=== PATIENT | female | born 1940 | race Caucasian/White ===

== ENCOUNTER 2017-04-22 12:18 | Inpatient (IN) | payer MEDICARE, MEDICAID ==
[~2017-04-22] VITALS: Ht 165.1 cm; Wt 93.8 kg
--- NOTE | 2017-04-22 12:48 | ERA ---
ER Documentation Chief Complaint Date/Time DATE: 04/22/17 TIME: 12:45 Chief Complaint FELL WEEKS AGO, HAS TOAL BODY ACHES NOW HPI 77-year-old female history of hypertension, hyperlipidemia and chronic back pain referred to the ED by Dr. Casey for evaluation of acute on chronic back pain. Patient with a 4 year history of chronic low back pain which has become increasingly severe over the last week. Pain is sharp and burning and radiates down the back of both legs but is especially severe in a stocking distribution of both lower legs and feet. Pain is exacerbated by any kind of movement but no relieving factors including multiple analgesics and opiates including oxycodone. She has been to multiple EDs previously and had extensive workup including CT and MRI the results of which are not known but according to family nothing acute was found. Denies abdominal pain, nausea, vomiting, diarrhea or constipation. No chest pain or palpitations. No shortness of breath or cough. Denies headache, visual changes, focal weakness or numbness. No dysuria, polyuria or hematuria. No fevers or chills. ROS All systems reviewed and are negative except as per history of present illness. Medications Home Meds Active Scripts Gabapentin* (Gabapentin*) 300 Mg Capsule, 300 MG PO TID, #15 CAP Prov:CRISSY EARL MD 04/22/17 Reported Medications Potassium Chloride* (Potassium Chloride*) 8 Meq Capsule.er, 8 MEQ PO DAILY, CAP 04/22/17 Hydralazine Hcl* (Hydralazine Hcl*) 25 Mg Tab, 25 MG PO Q8, #90 TAB 04/22/17 Kcnzke-Nuqtqbfz-Ceogqsx* (Zenpep * 20,000) 20,000 L-68,000-109,000 Unit Capsule.dr, 1 CAP PO WITH MEALS, CAP 04/22/17 Linaclotide (LINZESS) 145 Mcg Capsule, 145 MCG PO DAILY, #30 CAP 04/22/17 Nebivolol Hcl* (Bystolic*) 10 Mg Tablet, 10 MG PO DAILY, #30 TAB 04/22/17 Fenofibrate Nanocrystallized* (Fenofibrate*) 145 Mg Tablet, 145 MG PO DAILY, TAB 04/22/17 Pregabalin* (Lyrica*) 100 Mg Capsule, 100 MG PO DAILY, CAP 04/22/17 Oxycodone HCl/Acetaminophen (Percocet 7.5-325 mg Tablet) 1 Each Tablet, 1 EACH PO BID, TAB 04/22/17 Hydrocodone/Acetaminophen (Solomon 7.5-325 Tablet) 1 Each Tablet, 1 EACH PO TID, TAB 04/22/17 Esomeprazole Mag Trihydrate (Nexium) 40 Mg Capsule.dr, 40 MG PO DAILY, #30 CAP 04/22/17 Levetiracetam* (Levetiracetam*) 500 Mg Tablet, 500 MG PO BID, TAB 04/22/17 Atorvastatin Calcium* (Atorvastatin Calcium*) 20 Mg Tablet, 20 MG PO QHS, #30 TAB 04/22/17 Amlodipine Besylate* (Amlodipine Besylate*) 10 Mg Tablet, 10 MG PO DAILY, #30 TAB 04/22/17 Ibuprofen* (Ibuprofen*) 600 Mg Tablet, 600 MG PO BID, TAB 04/22/17 Furosemide* (Furosemide*) 40 Mg Tablet, 40 MG PO DAILY, TAB 04/22/17 Spironolactone* (Aldactone*) 5 Mg/Ml (COMPOUNDED) Susp, 5 MG PO BID for 30 Days , BOTTLE (COMPOUNDED) 04/22/17 Lorazepam* (Lorazepam*) 0.5 Mg Tablet, 0.5 MG PO HS Y for ANXIETY, TAB 04/22/17 Discontinued Reported Medications Hydrocodone/Acetaminophen (Solomon 5-325 Tablet) 1 Each Tablet, 1 EACH PO TID, TAB 04/22/17 Allergies Allergies: Coded Allergies: No Known Allergy (Unverified , 04/22/17) PMhx/Soc Reviewed in chart. As per HPI. Lives with family. History of Surgery: No Anesthesia Reaction: No Hx Neurological Disorder: No Hx Respiratory Disorders: No Hx Cardiac Disorders: Yes Hx Psychiatric Problems: No Hx Miscellaneous Medical Probl: No Hx Alcohol Use: No Hx Substance Use: No Hx Tobacco Use: No FmHx No stroke or cancer. Physical Exam Vitals Vital Signs Date Time Temp Pulse Resp B/P Pulse Ox O2 Delivery O2 Flow Rate FiO2 04/22/17 15:39 52 13 126/84 97 04/22/17 14:07 59 17 130/79 97 Room Air 04/22/17 12:23 98.1 84 20 176/83 99 Physical Exam Const: Alert, moderate to severe distress due to pain. Head: Atraumatic Eyes: Normal Conjunctiva ENT: Normal External Ears, Nose and Mouth. Neck: Full range of motion. No meningismus. Nontender. Resp: Clear to auscultation bilaterally Cardio: Regular rate and rhythm, no murmurs Abd: Soft, obese non tender, non distended. Normal bowel sounds Skin: No petechiae or rashes Back: No midline or flank tenderness. Diffuse, nonlocalizing lumbar tenderness but no paraspinal muscle spasm. No midline bony tenderness, step- off or deformity. Dorsiflexion of the great toes normal bilaterally. Unable to cooperate with leg raising. Ext: No cyanosis, or edema. No calf swelling or tenderness. Pulses are 4+ in all extremities. Neur: Awake and alert. No focal deficit observed. Motor and sensory equal bilaterally. Psych: Patient appears anxious and depressed. Result Diagram: 04/22/17 1335 04/22/17 1335 Results 24 hrs Laboratory Tests Test 04/22/17 12:57 04/22/17 13:35 Urine Color YELLOW Urine Clarity CLEAR Urine pH 5.0 Urine Specific [place] 1.023 Urine Ketones NEGATIVEmg/dL Urine Nitrite NEGATIVEmg/dL Urine Bilirubin NEGATIVEmg/dL Urine Urobilinogen NEGATIVEmg/dL Urine Leukocyte Esterase NEGATIVELeu/ul Urine Microscopic RBC 3/HPF Urine Microscopic WBC 0/HPF Urine Hemoglobin 1+mg/dL Urine Glucose NEGATIVEmg/dL Urine Total Protein NEGATIVEmg/dl White Blood Count 6.710^3/ul Red Blood Count 3.5410^6/ul Hemoglobin 10.8g/dl Hematocrit 33.0% Mean Corpuscular Volume 93.2fl Mean Corpuscular Hemoglobin 30.5pg Mean Corpuscular Hemoglobin Concent 32.7g/dl Red Cell Distribution Width 13.0% Platelet Count 54036^3/UL Mean Platelet Volume 9.6fl Neutrophils % 66.8% Lymphocytes % 23.5% Monocytes % 8.4% Eosinophils % 0.4% Basophils % 0.3% Nucleated Red Blood Cells % 0.0/100WBC Neutrophils # 4.510^3/ul Lymphocytes # 1.610^3/ul Monocytes # 0.610^3/ul Eosinophils # 0.010^3/ul Basophils # 0.010^3/ul Nucleated Red Blood Cells # 0.010^3/ul Sodium Level 142mmol/L Potassium Level 3.7mmol/L Chloride Level 108mmol/L Carbon Dioxide Level 27mmol/L Anion Gap 11 Blood Urea Nitrogen 17mg/dl Creatinine 0.62mg/dl Glucose Level 121mg/dl Calcium Level 9.5mg/dl Total Bilirubin 0.0mg/dl Direct Bilirubin 0.00mg/dl Indirect Bilirubin 0.0mg/dl Aspartate Amino Transf (AST/SGOT) 20IU/L Alanine Aminotransferase (ALT/SGPT) 35IU/L Alkaline Phosphatase 54IU/L Total Protein 7.2g/dl Albumin 4.6g/dl Globulin 2.60g/dl Albumin/Globulin Ratio 1.76 Current Medications Medications (Trade) Dose Ordered Sig/Khushbu Route PRN Reason Start Time Stop Time Status Last Admin Dose Admin Morphine Sulfate (morphine) 4 mg ONCE STAT IV 04/22/17 13:34 04/22/17 13:36 DC 04/22/17 13:39 Ondansetron HCl (Zofran Inj) 4 mg ONCE STAT IV 04/22/17 13:34 04/22/17 13:36 DC 04/22/17 13:39 Ketorolac Tromethamine (Toradol) 10 mg ONCE STAT IV 04/22/17 13:34 04/22/17 13:36 DC 04/22/17 13:40 Gabapentin (Neurontin) 300 mg ONCE ONCE PO 04/22/17 17:30 04/22/17 17:31 DC Ondansetron HCl (Zofran Inj) 4 mg BRIDGE ORDER PRN IV NAUSEA AND/OR VOMITING 04/22/17 18:00 04/23/17 17:59 Acetaminophen (Tylenol Tab) 650 mg ER BRIDGE PRN PO MILD PAIN/FEVER 04/22/17 18:00 04/23/17 17:59 Procedures/MDM DOCUMENTS REVIEWED: ED nurse, Dr. Casey referral [employer]-year-old female history of hypertension, hyperlipidemia and chronic back pain referred to the ED by Dr. Casey for evaluation of acute on chronic back pain. Patient with a 4 year history of chronic low back pain which has become increasingly severe over the last week. Since her prior workups including CT and MRI not repeated today. No acute neurologic deficit. Spinal epidural abscess, cauda equina and acute disc herniation were considered. No evidence of a vascular etiology abdominal aortic aneurysm, dissection, peripheral artery disease or deep vein thrombosis. Admit to [facility] for further evaluation and management. Counseled patient and family regarding diagnosis, diagnostic results and plan for admission. CALLS/CONSULTS: Time 12:47, Dr. Casey, Recommends admission to [facility]. PATIENT CARE TRANSITIONED: Time: 19:20, Dr. Casey. Departure Diagnosis: Primary Impression: Intractable low back pain Additional Impressions: Acute exacerbation of chronic low back pain Hypertension Qualified Code: I15.9 - Secondary hypertension Condition: Serious CRISSY EARL MD Apr 22, 2017 12:48
[2017-04-22] MEDS ORDERED: KETOROLAC 15 MG INJ IV STA (13:34)
[2017-04-22] MEDS ORDERED: morphine 4 MG/ML VIAL IV STA (13:34)
[2017-04-22] MEDS ORDERED: ONDANSETRON 4 MG INJ IV STA (13:34)
[2017-04-22 13:46] LABS: ADD SCAN DIFF NO
[2017-04-22 13:48] LABS: BASOPHILS % 0.3 % (0.0-2.0); EOSINOPHILS % 0.4 % (0.0-7.0); HEMOGLOBIN 10.8 g/dl (12.0-16.0); LYMPHOCYTES # 1.6 10^3/ul (0.8-2.9); LYMPHOCYTES % 23.5 % (15.0-51.0); MEAN CORPUSCULAR HEMOGLOBIN 30.5 pg (29.0-33.0); MEAN CORPUSCULAR HGB CONC 32.7 g/dl (32.0-37.0); MEAN CORPUSCULAR VOLUME 93.2 fl (82.0-101.0); MEAN PLATELET VOLUME 9.6 fl (7.4-10.4); MONOCYTE # 0.6 10^3/ul (0.3-0.9); MONOCYTES % 8.4 % (0.0-11.0); NEUTROPHIL # 4.5 10^3/ul (1.6-7.5); NEUTROPHILS % 66.8 % (39.0-77.0); PLATELET COUNT 218 10^3/UL (140-415); RED BLOOD COUNT 3.54 10^6/ul (4.20-5.40); WHITE BLOOD COUNT 6.7 10^3/ul (4.8-10.8)
[2017-04-22 14:05] LABS: ADD UMIC YES; UR ASCORBIC ACID NEGATIVE (NEGATIVE); UR BILIRUBIN (Dip) NEGATIVE (NEGATIVE); UR BLOOD (Dip) 1+ mg/dL (NEGATIVE); UR CLARITY CLEAR (CLEAR); UR COLOR YELLOW (YELLOW); UR GLUCOSE (Dip) NEGATIVE (NEGATIVE); UR KETONES (Dip) NEGATIVE (NEGATIVE); UR LEUKOCYTE ESTERASE (Dip) NEGATIVE Leu/ul (NEGATIVE); UR NITRITE (Dip) NEGATIVE (NEGATIVE); UR RBC 3 /HPF (0-5); UR SPECIFIC GRAVITY (Dip) 1.023 (1.003-1.030); UR TOTAL PROTEIN (Dip) NEGATIVE (NEGATIVE); UR UROBILINOGEN (Dip) NEGATIVE (NEGATIVE)
[2017-04-22 14:08] LABS: ALBUMIN 4.6 g/dl (3.3-4.9); ALBUMIN/GLOBULIN RATIO 1.76; CALCIUM 9.5 mg/dl (8.4-10.2); CREATININE 0.62 mg/dl (0.44-1.00); POTASSIUM 3.7 mmol/L (3.5-5.1); TOTAL PROTEIN 7.2 g/dl (6.1-8.1)
[2017-04-22] MEDS ORDERED: LORA0.5T PO (14:12)
[2017-04-22] MEDS ORDERED: ALDS PO (14:12)
[2017-04-22] MEDS ORDERED: IBUP-1542 PO (14:13)
[2017-04-22] MEDS ORDERED: FURO40TA4 PO (14:13)
[2017-04-22] MEDS ORDERED: ATOR20TA38 PO (14:14)
[2017-04-22] MEDS ORDERED: LEVE500T8 PO (14:14)
[2017-04-22] MEDS ORDERED: AMLO-147 PO (14:14)
[2017-04-22] MEDS ORDERED: HYDR-906 PO (14:15)
[2017-04-22] MEDS ORDERED: HYDR-905 PO (14:16)
[2017-04-22] MEDS ORDERED: ESOM40CA PO (14:16)
[2017-04-22] MEDS ORDERED: OXYC-203 PO (14:17)
[2017-04-22] MEDS ORDERED: FENO145T19 PO (14:18)
[2017-04-22] MEDS ORDERED: LYRI100 PO (14:18)
[2017-04-22] MEDS ORDERED: NEBI10TA2 PO (14:18)
[2017-04-22] MEDS ORDERED: LINA145C PO (14:19)
[2017-04-22] MEDS ORDERED: LIPA1CAP18 PO (14:21)
[2017-04-22] MEDS ORDERED: HYDR-3671 PO (14:23)
[2017-04-22] MEDS ORDERED: POTA8CAP PO (14:24)
[2017-04-22] MEDS ORDERED: GABAPENTIN 300 MG CAP PO ONE (17:30)
[2017-04-22] MEDS ORDERED: GABA300C16 PO (17:35)
[2017-04-22] MEDS ORDERED: ACETAMINOPHEN 325 MG TAB PO PRN (18:00)
[2017-04-22] MEDS ORDERED: ONDANSETRON 4 MG INJ IV PRN (18:00)
[2017-04-22 18:30] VITALS: BP 151/72; PULSE 57; RESP 18
[2017-04-22 19:18] VITALS: Ht 165.1 cm; Wt 93.8 kg
[2017-04-22] MEDS: morphine 2 MG INJ IV PRN (19:52)
[2017-04-22 20:08] VITALS: BP 172/79; RESP 19
[2017-04-22] MEDS ORDERED: BISACODYL (EC) 5 MG TAB PO PRN (20:30)
[2017-04-22] MEDS ORDERED: DOCUSATE SODIUM 100 MG CAP PO PRN (20:30)
[2017-04-22 21:00] VITALS: BP 155/79; PULSE 63; RESP 18
[2017-04-22] MEDS: POLYETHYLENE GLYCOL 17 GM PACKET PO SCH (21:45)
[2017-04-22] MEDS: GABAPENTIN 300 MG CAP PO SCH (21:46)
[2017-04-22] MEDS: ATORVASTATIN 20 MG TAB PO SCH (21:46)
[2017-04-22] MEDS: LOSARTAN 50 MG TAB PO SCH (21:48)
[2017-04-22] MEDS: HYDROCHLOROTHIAZIDE 12.5 MG CAP PO SCH (21:49)
[2017-04-22] MEDS: DOCUSATE SODIUM 100 MG CAP PO SCH (21:57)
[2017-04-22] MEDS: HYDROCODONE/APAP (5/325) TAB PO PRN (23:07)
[2017-04-23] VITALS: BP 166/77; PULSE 65; RESP 18
[2017-04-23 01:00] VITALS: BP 144/72; PULSE 60; RESP 20
[2017-04-23] MEDS: PANTOPRAZOLE (EC) 40 MG TAB PO SCH (05:43)
[2017-04-23] MEDS: HYDROCODONE/APAP (5/325) TAB PO PRN ×2 (05:56→21:30)
[2017-04-23 08:14] VITALS: BP 144/66; RESP 20
[2017-04-23] MEDS: POLYETHYLENE GLYCOL 17 GM PACKET PO SCH ×4 (08:45→21:29)
[2017-04-23] MEDS: DOCUSATE SODIUM 100 MG CAP PO SCH ×2 (08:45→21:28)
[2017-04-23] MEDS: GABAPENTIN 300 MG CAP PO SCH ×3 (08:46→21:28)
[2017-04-23] MEDS: morphine 2 MG INJ IV PRN ×2 (08:56→22:11)
[2017-04-23] MEDS: NEBIVOLOL 5 MG TAB PO SCH (09:00)
[2017-04-23 09:22] VITALS: PULSE 60
--- NOTE | 2017-04-23 11:26 | CONS ---
Date/Time of Note Date/Time of Note DATE: 04/23/17 TIME: 11:19 Assessment/Plan Assessment/Plan Chief Complaint/Hosp Course Pre-operative evaluation: Were the pt to need any type of spinal surgery, she would be low-intermediate risk (no cardiac history or active cardiac disease by exam) for an intermediate risk surgery. Will obtain a baseline echo but otherwise no further testing needed at this time. Back pain/?lumbar disc herniation with nerve impingement: by history from pt HTN: uncontrolled but likely component from pain -add home amlodipine 10mg -continue home hydralazine 50mg BID, cozaar 50 mg QHS -pain control -echo -await further evaluation and plan for her back pain Problems: Consultation Date/Type/Reason Admit Date/Time Apr 22, 2017 at 17:42 Date of Consultation: Apr 23, 2017 Reason for Consultation Pre-op evaluation Referring Provider: GEE MOORE MD Hx of Present Illness 77 yo F with a h/o HTN, HL, chronic back pain, admitted for back pain. The pt tells me she was found to have disc herniation of her lumbar spine (I am unable to confirm this ) and has had back pain radiating to her lower legs which are unbearable at times and disrupt her sleep. The pain is not worse with walking. She has had what sounds like evaluation for PAD and was unremarkable. She denies cardiac history. No chest pain or SOB. Currently pain is better after morphine. She does not know what she takes for BP meds at home. per HPI Past Medical History per HPI Social History Alcohol Use: none Smoking Status: Never smoker Exam/Review of Systems Vital Signs Vitals Vital Signs Date Time Temp Pulse Resp B/P Pulse Ox O2 Delivery O2 Flow Rate FiO2 04/23/17 09:22 60 04/23/17 08:14 98.0 20 144/66 96 04/23/17 01:00 Room Air Intake and Output 04/22/17 04/22/17 04/23/17 14:59 22:59 06:59 Intake Total 700 ml Balance 700 ml Exam Constitutional: alert, oriented Psych: nl mood/affect, no complaints Head: atraumatic, normocephalic Eyes: nl conjunctiva ENMT: nl external ears & nose Neck: No bruits, No jvd Respiratory: clear to auscultation, No crackles/rales Cardiovascular: regular rate and rhythm, No edema, No systolic murmur Gastrointestinal: non-tender, soft Extremities: normal pulses Neurological: nl mental status, nl speech Skin: No rash or lesions Results Result Diagram: 04/22/17 1335 04/22/17 1335 Results 24 hrs Laboratory Tests Test 04/22/17 12:57 04/22/17 13:35 Urine Color YELLOW Urine Clarity CLEAR Urine pH 5.0 Urine Specific [place] 1.023 Urine Ketones NEGATIVE Urine Nitrite NEGATIVE Urine Bilirubin NEGATIVE Urine Urobilinogen NEGATIVE Urine Leukocyte Esterase NEGATIVE Urine Microscopic RBC 3 Urine Microscopic WBC 0 Urine Hemoglobin 1+ H Urine Glucose NEGATIVE Urine Total Protein NEGATIVE White Blood Count 6.7 Red Blood Count 3.54 L Hemoglobin 10.8 L Hematocrit 33.0 L Mean Corpuscular Volume 93.2 Mean Corpuscular Hemoglobin 30.5 Mean Corpuscular Hemoglobin Concent 32.7 Red Cell Distribution Width 13.0 Platelet Count 218 Mean Platelet Volume 9.6 Neutrophils % 66.8 Lymphocytes % 23.5 Monocytes % 8.4 Eosinophils % 0.4 Basophils % 0.3 Nucleated Red Blood Cells % 0.0 Neutrophils # 4.5 Lymphocytes # 1.6 Monocytes # 0.6 Eosinophils # 0.0 Basophils # 0.0 Nucleated Red Blood Cells # 0.0 Sodium Level 142 Potassium Level 3.7 Chloride Level 108 Carbon Dioxide Level 27 Anion Gap 11 Blood Urea Nitrogen 17 Creatinine 0.62 Glucose Level 121 Calcium Level 9.5 Total Bilirubin 0.0 L Direct Bilirubin 0.00 Indirect Bilirubin 0.0 Aspartate Amino Transf (AST/SGOT) 20 Alanine Aminotransferase (ALT/SGPT) 35 Alkaline Phosphatase 54 Total Protein 7.2 Albumin 4.6 Globulin 2.60 Albumin/Globulin Ratio 1.76 Medications Medications Current Medications Morphine Sulfate (morphine) 2 mg Q3H PRN IV PAIN LEVEL 7-10 Last administered on 04/23/17 08:56; Admin Dose 2 MG; Start 04/22/17 at 19:00 Atorvastatin Calcium (Lipitor) 20 mg HS PO Last administered on 04/22/17 21:46 ; Admin Dose 20 MG; Start 04/22/17 at 21:00 Miscellaneous Medication (Bystolic) 10 mg DAILY PO ; Start 04/23/17 at 09:00 Hydralazine HCl (Apresoline) 50 mg BID PO Last administered on 04/23/17 08:47 ; Admin Dose 50 MG; Start 04/22/17 at 21:00 Clonidine (Catapres) 0.2 mg BID PRN PO FOR SBP >150 Last administered on 23:52; Admin Dose 0.2 MG; Start 04/22/17 at 20:30 Pantoprazole (Protonix Tab) 40 mg DAILY@06 PO Last administered on 04/23/17 05 :43; Admin Dose 40 MG; Start 04/23/17 at 06:00 Losartan Potassium (Cozaar) 50 mg HS PO Last administered on 04/22/17 21:48; Admin Dose 50 MG; Start 04/22/17 at 21:00 Hydrochlorothiazide (Hydrochlorothiazide) 12.5 mg HS PO Last administered on 21:49; Admin Dose 12.5 MG; Start 04/22/17 at 21:00 Acetaminophen/ Hydrocodone Bitart ([place] (5/325)) 1 tab Q6H PRN PO MODERATE PAIN Last administered on 04/23/17 05:56; Admin Dose 1 TAB; Start 04/22/17 at 20:30 Bisacodyl (Dulcolax) 5 mg DAILY PRN PO CONSTIPATION; Start 04/22/17 at 20:30 Gabapentin (Neurontin) 600 mg TID PO Last administered on 04/23/17 08:46; Admin Dose 600 MG; Start 04/22/17 at 21:00 Polyethylene Glycol (Miralax) 17 gm TID PO Last administered on 04/23/17 08:45 ; Admin Dose 17 GM; Start 04/22/17 at 21:00 Docusate Sodium (Colace) 100 mg BID PO Last administered on 04/23/17 08:45; Admin Dose 100 MG; Start 04/22/17 at 22:00 Amlodipine Besylate (Norvasc) 10 mg DAILY PO ; Start 04/23/17 at 11:00 GISEL RICE Apr 23, 2017 11:26
--- NOTE | 2017-04-23 12:31 | CONS ---
Date/Time of Note Date/Time of Note DATE: 04/23/17 TIME: 12:11 Assessment/Plan Assessment/Plan Additional Assessment/Plan LBP with LE radic (left > right) x 4 years , worse during past several weeks Per granddaughter (via cell) underwent epidural injection with no significant relief. Family states that pain is actually worse MRI done but granddaughter is unable to obtain images plan pain management pt/ot mri Lspine w/o contrast finalize recs once studies completed discussed plan with pt and granddaughter via cell. Consultation Date/Type/Reason Admit Date/Time Apr 22, 2017 at 17:42 Hx of Present Illness 77 y/o female with history HTN, HLD and chronic back pain x 4 years. Pt states increasing back pain with LE radic (right > left) . Pt underwent epidural injection x 4 days Psychological: nl mood/affect, no complaints Social History Alcohol Use: none Smoking Status: Never smoker Exam/Review of Systems Vital Signs Vitals Vital Signs Date Time Temp Pulse Resp B/P Pulse Ox O2 Delivery O2 Flow Rate FiO2 04/23/17 09:22 60 04/23/17 08:14 98.0 20 144/66 96 04/23/17 01:00 Room Air Intake and Output 04/22/17 04/22/17 04/23/17 15:00 23:00 07:00 Intake Total 700 ml Balance 700 ml Exam Constitutional: alert Psych: no complaints Neurological: other (MS: [id number] CN: III-XII intact M: FC x 4 ) Results Result Diagram: 04/22/17 1335 04/22/17 1335 Results 24 hrs Laboratory Tests Test 04/22/17 12:57 04/22/17 13:35 Urine Color YELLOW Urine Clarity CLEAR Urine pH 5.0 Urine Specific [place] 1.023 Urine Ketones NEGATIVE Urine Nitrite NEGATIVE Urine Bilirubin NEGATIVE Urine Urobilinogen NEGATIVE Urine Leukocyte Esterase NEGATIVE Urine Microscopic RBC 3 Urine Microscopic WBC 0 Urine Hemoglobin 1+ H Urine Glucose NEGATIVE Urine Total Protein NEGATIVE White Blood Count 6.7 Red Blood Count 3.54 L Hemoglobin 10.8 L Hematocrit 33.0 L Mean Corpuscular Volume 93.2 Mean Corpuscular Hemoglobin 30.5 Mean Corpuscular Hemoglobin Concent 32.7 Red Cell Distribution Width 13.0 Platelet Count 218 Mean Platelet Volume 9.6 Neutrophils % 66.8 Lymphocytes % 23.5 Monocytes % 8.4 Eosinophils % 0.4 Basophils % 0.3 Nucleated Red Blood Cells % 0.0 Neutrophils # 4.5 Lymphocytes # 1.6 Monocytes # 0.6 Eosinophils # 0.0 Basophils # 0.0 Nucleated Red Blood Cells # 0.0 Sodium Level 142 Potassium Level 3.7 Chloride Level 108 Carbon Dioxide Level 27 Anion Gap 11 Blood Urea Nitrogen 17 Creatinine 0.62 Glucose Level 121 Calcium Level 9.5 Total Bilirubin 0.0 L Direct Bilirubin 0.00 Indirect Bilirubin 0.0 Aspartate Amino Transf (AST/SGOT) 20 Alanine Aminotransferase (ALT/SGPT) 35 Alkaline Phosphatase 54 Total Protein 7.2 Albumin 4.6 Globulin 2.60 Albumin/Globulin Ratio 1.76 Medications Medications Current Medications Morphine Sulfate (morphine) 2 mg Q3H PRN IV PAIN LEVEL 7-10 Last administered on 04/23/17 08:56; Admin Dose 2 MG; Start 04/22/17 at 19:00 Atorvastatin Calcium (Lipitor) 20 mg HS PO Last administered on 04/22/17 21:46 ; Admin Dose 20 MG; Start 04/22/17 at 21:00 Miscellaneous Medication (Bystolic) 10 mg DAILY PO ; Start 04/23/17 at 09:00 Hydralazine HCl (Apresoline) 50 mg BID PO Last administered on 04/23/17 08:47 ; Admin Dose 50 MG; Start 04/22/17 at 21:00 Clonidine (Catapres) 0.2 mg BID PRN PO FOR SBP >150 Last administered on 23:52; Admin Dose 0.2 MG; Start 04/22/17 at 20:30 Pantoprazole (Protonix Tab) 40 mg DAILY@06 PO Last administered on 04/23/17 05 :43; Admin Dose 40 MG; Start 04/23/17 at 06:00 Losartan Potassium (Cozaar) 50 mg HS PO Last administered on 04/22/17 21:48; Admin Dose 50 MG; Start 04/22/17 at 21:00 Hydrochlorothiazide (Hydrochlorothiazide) 12.5 mg HS PO Last administered on 21:49; Admin Dose 12.5 MG; Start 04/22/17 at 21:00 Acetaminophen/ Hydrocodone Bitart ([place] (5/325)) 1 tab Q6H PRN PO MODERATE PAIN Last administered on 04/23/17 05:56; Admin Dose 1 TAB; Start 04/22/17 at 20:30 Bisacodyl (Dulcolax) 5 mg DAILY PRN PO CONSTIPATION; Start 04/22/17 at 20:30 Gabapentin (Neurontin) 600 mg TID PO Last administered on 04/23/17 08:46; Admin Dose 600 MG; Start 04/22/17 at 21:00 Polyethylene Glycol (Miralax) 17 gm TID PO Last administered on 04/23/17 08:45 ; Admin Dose 17 GM; Start 04/22/17 at 21:00 Docusate Sodium (Colace) 100 mg BID PO Last administered on 04/23/17 08:45; Admin Dose 100 MG; Start 04/22/17 at 22:00 Amlodipine Besylate (Norvasc) 10 mg DAILY PO ; Start 04/23/17 at 11:00 PATY RAMIREZ NP Apr 23, 2017 12:31
[2017-04-23] MEDS: AMLODIPINE 10 MG TAB PO SCH (12:57)
[2017-04-23 13:00] VITALS: BP 110/56; PULSE 60
[2017-04-23] MEDS ORDERED: NA PHOSPHATE/BIPHOS 133 ML ENEMA PR PRN (13:30)
--- NOTE | 2017-04-23 15:35 | RADRPT ---
Echocardiogram Report Patient Name: JOSEPHINE VAUGHAN Gender: Female Date: 1940 Study Date: 23-Apr-2017 Senior Design Engineer: Otto [facility] Location: [id number] Ref. Physician: GISEL RICE Quality: Adequate Procedures: Transthoracic echocardiogram with complete 2D, M-Mode, and doppler examination. Indications: Hypertension. Pre-op. 2D/M Mode Doppler Measurement Value Normal Ranges Measurement Value Normal Ranges LVIDd 2D 5.7 3.5 - 5.6 cm AV Peak Shiva 1.3 m/sec LVIDs 2D 3.9 2.1 - 4.1 cm AV Peak PG 7.1 mmHg LVPWd 2D 1.2 0.6 - 1.1 cm AI Peak PG 27.9 mmHg IVSd 2D 1.1 0.6 - 1.1 cm AI Peak Shiva 2.6 m/sec AoR Diam 2D 2.7 2.0 - 3.7 cm AI PHT 1251.0 msec EDV 2D 163.2 cm3 LVOT Peak Shiva 1.2 m/sec ESV 2D 59.5 cm3 LVOT Peak PG 6.0 mmHg LA Dimen 2D 4.4 2.3 - 4.0 cm MV E Peak Shiva 1.2 m/sec MV A Peak Shiva 0.8 m/sec MV E/A 1.5 MV Decel Time 228 msec MV Decel Sublette 5 MV E/A 1.5 TR Peak Shiva 3.2 m/sec TR Peak PG 40.6 mmHg RVSP 44.0 mmHg Findings Left Ventricle: Normal left ventricular systolic function. Normal left ventricular wall thickness. Mild enlargement of left ventricle cavity. Ejection fraction is visually estimated at 55 %. Tissue Doppler/Mitral Doppler indices are within normal limits. Right Ventricle: Normal right ventricular size. Normal right ventricular systolic function. Left Atrium: There is moderate enlargement of left atrium. Right Atrium: The right atrium is normal in size. Mitral Valve: Normal appearance of the mitral valve. Mild mitral annular calcification. Trace mitral regurgitation. Aortic Valve: Normal appearance of the aortic valve. Aortic sclerosis without stenosis. Trace to mild aortic valve regurgitation. Tricuspid Valve: Normal appearance of the tricuspid valve. Estimated peak PA systolic pressure 44 mmHg. There is mild tricuspid regurgitation. Pulmonic Valve: Normal pulmonic valve appearance. There is mild pulmonic regurgitation. Pericardium: Normal pericardium with no significant pericardial effusion. There is an anterior echo free space consistent with epicardial fat pad. Aorta: Normal aortic root. IVC: Normal size and normal respiratory collapse consistent with normal right atrial pressure. Conclusions 1.The left ventricular cavity is mildly enlarged. 2.Left ventricular systolic function is normal. Estimated left ventricular ejection fraction of 55%. 3.Moderate left atrial enlargement. 4.Estimated RVSP of 44 mmHg. Electronically Signed By: Gary Celis 23-Apr-2017 15:34:21 -0700 Patient Name: JOSEPHINE VAUGHAN Study Date: 23-Apr-2017 [id number]
[2017-04-23 20:11] VITALS: BP 144/67; RESP 18
[2017-04-23] MEDS: LOSARTAN 50 MG TAB PO SCH (21:29)
[2017-04-23] MEDS: HYDROCHLOROTHIAZIDE 12.5 MG CAP PO SCH (21:29)
[2017-04-23] MEDS: ATORVASTATIN 20 MG TAB PO SCH (21:29)
[2017-04-24] MEDS: morphine 2 MG INJ IV PRN ×2 (03:51→08:37)
--- NOTE | 2017-04-24 04:27 | CONS ---
DATE OF ADMISSION: 04/22/2017 DATE OF CONSULTATION: 04/23/2017 TYPE OF CONSULTATION: Neurology. Thank you, Dr. Casey, for your kind referral for evaluation of chronic low back pain. HISTORY OF PRESENT ILLNESS: The patient is a 77-year-old lady with past medical history of hyperten mary jo, dyslipidemia. The patient has chronic low back pain for 3 or 4 years. She fell in the beginn ing of month and since complaining of worsening of low back pain. There is some blunt head trauma. The patient had scalp hematomas, and according to the granddaughter who is present at bedside and i nterpreting and providing details of the history, a CAT scan did not show any abnormality. The lynne ent complains of low back pain that radiates to the right leg, but lately it has started radiating t o the left as well. She fell on the right side of her leg and complains of tenderness in the right buttock and hip since. No numbness or weakness. No bowel or bladder problems except medication rel ated constipation. The patient had several ER visits. She was seeing some pain specialist, not joi e which one, and had epidural injections 4 days ago with no improvement in the pain. She had MRI of the lumbar spine done about 2 weeks ago, and she does not want to get another one today. She start ed on Gabapentin 600 mg 3 times a day last night. She feels that burning in the feet has got a tj le bit better. According to reconciliation note, she was taking Gabapentin 300 three times a day as well as Lyrica 100 once daily, but per granddaughter, the patient was not taking this medicine prio r to admission. The patient also complains of frequent headaches which were also chronic and very s ensitive scalp. CURRENT MEDICATIONS: 1. Currently, she is also put on morphine. She takes 2. Norvasc. 3. Bystolic. 4. Protonix. 5. Colace. 6. Lipitor. 7. Cozaar 8. Hydrochlorothiazide. 9. Catapres. 10. Melvin 11. Dulcolax. ALLERGIES: NONE. SOCIAL HISTORY: No alcohol, tobacco, drug use. FAMILY HISTORY: Noncontributory. REVIEW OF SYSTEMS: At baseline, the patient ambulates with a walker. PHYSICAL EXAMINATION: VITAL SIGNS: On examination today, temperature 98.0, pulse 60, respirations 20, blood pressure 110/ 56. GENERAL: Not in acute distress, lying in bed. HEENT: Normocephalic, atraumatic head. NECK: No carotid bruits. No thyromegaly. LUNGS: Clear to auscultation bilaterally. CARDIAC: Normal cardiac rhythm and sounds. ABDOMEN: Soft. EXTREMITIES: No cyanosis, clubbing, or edema. Tenderness to palpation in the right buttock and lum bar spinous processes. NEUROLOGIC: She is awake, alert, and oriented x3 with fluent speech. Cranial nerve examination dandy ws intact visual muñiz bilaterally. Pupils round, reactive to light from 3 to 2 mm bilaterally. E xtraocular movements intact without nystagmus. Symmetrical face. Preserved facial strength and sen sation. Tongue is in midline. Palate elevates symmetrically. Motor strength examination is preser stephanie in all extremities. Normal bulk, tone, and strength. Sensory examination shows diminution of p erception of pinprick and vibration in bilateral hands and feet with distal forelegs. Deep tendon r eflexes 1+ upper extremities, absent in lower extremities. Downgoing toes bilaterally. Coordinatio n preserved on [id number] testing. No dysmetria or tremor. Gait was not assessed. IMPRESSION: Chronic low back pain, worsening in the last month, status post incidental fall in the shower about 1 month ago. MRI of the lumbar spine was done about 2 weeks ago, and according to the family member, primary MD will obtain the report on the MRI. The patient started on pretty strong d ose of Neurontin. She claims that she has never taken it before. So far, she tolerates okay, does not feel sleepy, and feels that her burning sensation has gotten better, so it is okay to continue. If she feels sleepy on this, dose could be decreased to 300 three times a day. I would recommend to continue pain management. Pain management consult could be obtained. The lynne ent received epidural injections a few days ago with no improvement of her symptoms. I do not know if she will be able to get another 1 or if it is too early. I am not sure what are the contraindica tions. I would recommend to obtain formal pain consult in the hospital given that Melvin and Percoc et the patient has been taking prior to admission does not help the pain practically at all. The mae ellsworth is not interested in any surgical treatment of her spinal problem. PLAN: Continue current treatment. No other recommendations. The patient had possible blunt head trauma secondary to fall about a month ago but reportedly had CA T scan imaging of the head. She does have history of chronic headaches for a long time. She compla ins of sensitivity of scalp to touch. I think that newly started Neurontin will help with this as elis calderon. Dictated By: EFRAIN SALINAS/TALI Conf#: [id number] DID#: [id number]
[2017-04-24] MEDS: PANTOPRAZOLE (EC) 40 MG TAB PO SCH (05:05)
[2017-04-24 08:00] VITALS: BP 113/68; RESP 19
[2017-04-24] MEDS: DOCUSATE SODIUM 100 MG CAP PO SCH ×2 (08:28→20:30)
[2017-04-24] MEDS: POLYETHYLENE GLYCOL 17 GM PACKET PO SCH ×3 (08:28→20:33)
[2017-04-24] MEDS: GABAPENTIN 300 MG CAP PO SCH ×3 (08:28→20:32)
[2017-04-24] MEDS: NEBIVOLOL 5 MG TAB PO SCH (08:29)
[2017-04-24] MEDS: AMLODIPINE 10 MG TAB PO SCH (09:00)
[2017-04-24] MEDS: HYDROCODONE/APAP (5/325) TAB PO PRN ×2 (10:44→22:10)
[2017-04-24] MEDS: morphine 4 MG/ML VIAL IV PRN ×2 (13:16→20:33)
--- NOTE | 2017-04-24 14:00 | PN ---
Date/Time of Note Date/Time of Note DATE: 04/24/17 TIME: 13:51 Assessment/Plan VTE Prophylaxis VTE Prophylaxis Intervention: anti-embolic stocking VTE Contraindication Reason: peripheral vascular disease, refusal of treatment by patient Lines/Catheters IV Catheter Type (from Nrsg): Saline Lock Central line still needed: No Urinary Cath still in place: No Reason Cath still needed: urinary retention Subjective 24 Hr Interval Summary Free Text/Dictation I slept the fist time last more than 30 days. I can't get up. The latest 3 mg morphine helps about2-3 hours. Subjective hx not possible: pt critical Constitutional: diaphoresis, poor po, No chills, No disoriented, No febrile, No improved, No no complaints, No other, No requiring IVF, No requiring O2 Eyes: No discharge, No no complaints, No other, No pain, No redness, No visual change ENT: congestion, pain, No bleeding, No discharge, No dysphagia, No no complaints, No other, No sore throat Respiratory: cough, shortness of breath, No no complaints, No other, No pain, No pleuritic pain, No sputum, No wheezing Cardiovascular: chest pain, lightheadedness, palpitations, No edema, No no complaints, No orthopenea, No other, No paroxysmal nocturnal dyspnea Gastrointestinal: constipation, No blood, No decreased appetite, No diarrhea, No flatus, No nausea, No no complaints, No other, No pain, No passing stool, No vomiting Neurologic: dizziness, headache, other (numbness of both ) Psychological: anxiety, depression Exam/Review of Systems Vital Signs Vitals Vital Signs Date Time Temp Pulse Resp B/P Pulse Ox O2 Delivery O2 Flow Rate FiO2 04/24/17 08:00 97.8 65 19 113/68 97 04/23/17 01:00 Room Air Intake and Output 04/23/17 04/23/17 04/24/17 15:00 23:00 07:00 Intake Total 1180 ml Balance 1180 ml Exam Constitutional: alert, frail, oriented Psych: anxiety, depression Eyes: EOMI, PERRL, nl conjunctiva, nl lids, No fundi, disc, No icteric, No nl sclera, No other ENMT: No intubated, No mucosa pink and moist, No nl external ears & nose, No nl lips & teeth, No nl nasal mucosa & septum, No other, No tympanic membranes Respiratory: clear to auscultation, normal air movement Cardiovascular: No S3, No S4, No bruits, No diastolic murmur, No edema, No gallop, No irregular rhythm, No jugular venous distention (JVD), No murmurs/ extra sounds, No nl pulses, No other, No regular rate and rhythm, No rub, No systolic murmur Gastrointestinal: bowel sounds, hepatomegaly, other (Severely constipated. No BM last 6 days.), soft Musculoskeletal: joint tenderness, muscle weakness, range of motion Extremities: normal pulses, tenderness Neurological: RN COMMUNITY II-XII intact (decreased hearing.), focal weakness (left more than right.), numbness (both feet.) Results Result Diagram: 04/22/17 1335 04/22/17 1335 Medications Medications Current Medications Atorvastatin Calcium (Lipitor) 20 mg HS PO Last administered on 04/23/17 21:29 ; Admin Dose 20 MG; Start 04/22/17 at 21:00 Miscellaneous Medication (Bystolic) 10 mg DAILY PO Last administered on 08:29; Admin Dose 10 MG; Start 04/23/17 at 09:00 Hydralazine HCl (Apresoline) 50 mg BID PO Last administered on 04/24/17 13:17 ; Admin Dose 50 MG; Start 04/22/17 at 21:00 Clonidine (Catapres) 0.2 mg BID PRN PO FOR SBP >150 Last administered on 23:52; Admin Dose 0.2 MG; Start 04/22/17 at 20:30 Pantoprazole (Protonix Tab) 40 mg DAILY@06 PO Last administered on 04/24/17 05 :05; Admin Dose 40 MG; Start 04/23/17 at 06:00 Losartan Potassium (Cozaar) 50 mg HS PO Last administered on 04/23/17 21:29; Admin Dose 50 MG; Start 04/22/17 at 21:00 Hydrochlorothiazide (Hydrochlorothiazide) 12.5 mg HS PO Last administered on 21:29; Admin Dose 12.5 MG; Start 04/22/17 at 21:00 Acetaminophen/ Hydrocodone Bitart ([place] (5/325)) 1 tab Q6H PRN PO MODERATE PAIN Last administered on 04/24/17 10:44; Admin Dose 1 TAB; Start 04/22/17 at 20:30 Bisacodyl (Dulcolax) 5 mg DAILY PRN PO CONSTIPATION; Start 04/22/17 at 20:30 Gabapentin (Neurontin) 600 mg TID PO Last administered on 04/24/17 13:15; Admin Dose 600 MG; Start 04/22/17 at 21:00 Polyethylene Glycol (Miralax) 17 gm TID PO Last administered on 04/24/17 13:15 ; Admin Dose 17 GM; Start 04/22/17 at 21:00 Docusate Sodium (Colace) 100 mg BID PO Last administered on 04/24/17 08:28; Admin Dose 100 MG; Start 04/22/17 at 22:00 Amlodipine Besylate (Norvasc) 10 mg DAILY PO Last administered on 04/23/17 12: 57; Admin Dose 10 MG; Start 04/23/17 at 11:00 Sodium Biphosphate/ Sodium Phosphate (Fleet Enema) 133 ml DAILY PRN [place] CONSTIPATION; Start 04/23/17 at 13:30 Morphine Sulfate (morphine) 3 mg Q2H PRN IV SEVERE PAIN LEVEL 7-10 Last administered on 04/24/17 13:16; Admin Dose 3 MG; Start 04/24/17 at 12:30 GEE MOORE MD Apr 24, 2017 14:00
[2017-04-24] MEDS: LOSARTAN 50 MG TAB PO SCH (20:32)
[2017-04-24] MEDS: ATORVASTATIN 20 MG TAB PO SCH (20:33)
[2017-04-24] MEDS: HYDROCHLOROTHIAZIDE 12.5 MG CAP PO SCH (20:33)
[2017-04-24 21:46] VITALS: BP 123/67; RESP 18
[2017-04-25] MEDS: morphine 4 MG/ML VIAL IV PRN ×4 (05:28→20:44)
[2017-04-25] MEDS: PANTOPRAZOLE (EC) 40 MG TAB PO SCH (05:28)
[2017-04-25 07:52] VITALS: BP 118/60; RESP 18
[2017-04-25] MEDS: POLYETHYLENE GLYCOL 17 GM PACKET PO SCH ×3 (08:10→20:44)
[2017-04-25] MEDS: NEBIVOLOL 5 MG TAB PO SCH (08:10)
[2017-04-25] MEDS: DOCUSATE SODIUM 100 MG CAP PO SCH ×2 (08:10→20:45)
[2017-04-25] MEDS: GABAPENTIN 300 MG CAP PO SCH ×3 (08:10→21:22)
[2017-04-25] MEDS: AMLODIPINE 10 MG TAB PO SCH (08:53)
--- NOTE | 2017-04-25 10:35 | RADRPT ---
Vent Rate: 62 bpm RR Interval: [address] Interval: 148 msec QRS Duration: 90 msec QT Interval: 424 msec QTC Interval: 430 msec P-R-T [place]: 15 - 21 - 61 degrees Normal sinus rhythm Normal ECG Electronically Signed By: Kimo Haddad [id number]
[2017-04-25 12:18] LABS: ADD SCAN DIFF NO
[2017-04-25 12:21] LABS: BASOPHILS % 0.3 % (0.0-2.0); EOSINOPHILS # 0.1 10^3/ul (0.0-0.5); EOSINOPHILS % 0.7 % (0.0-7.0); HEMATOCRIT 36.5 % (37.0-47.0); HEMOGLOBIN 11.9 g/dl (12.0-16.0); LYMPHOCYTES # 2.1 10^3/ul (0.8-2.9); LYMPHOCYTES % 23.9 % (15.0-51.0); MEAN CORPUSCULAR HEMOGLOBIN 30.7 pg (29.0-33.0); MEAN CORPUSCULAR HGB CONC 32.6 g/dl (32.0-37.0); MEAN CORPUSCULAR VOLUME 94.3 fl (82.0-101.0); MEAN PLATELET VOLUME 9.6 fl (7.4-10.4); MONOCYTE # 0.7 10^3/ul (0.3-0.9); MONOCYTES % 8.5 % (0.0-11.0); NEUTROPHIL # 5.8 10^3/ul (1.6-7.5); PLATELET COUNT 240 10^3/UL (140-415); RED BLOOD COUNT 3.87 10^6/ul (4.20-5.40); RED CELL DISTRIBUTION WIDTH 13.2 % (11.5-14.5); WHITE BLOOD COUNT 8.7 10^3/ul (4.8-10.8)
[2017-04-25 12:37] LABS: INR 0.91; PROTIME 12.2 Sec (12.2-14.2)
[2017-04-25 12:38] LABS: PARTIAL THROMBOPLASTIN TIME 26.4 Sec (25.0-35.0)
[2017-04-25 12:39] LABS: CALCIUM 9.8 mg/dl (8.4-10.2); CREATININE 0.75 mg/dl (0.44-1.00); POTASSIUM 4.4 mmol/L (3.5-5.1)
--- NOTE | 2017-04-25 15:51 | CONS ---
Date/Time of Note Date/Time of Note DATE: 04/25/17 TIME: 15:48 Assessment/Plan Assessment/Plan Chief Complaint/Hosp Course Pre-operative evaluation: Were the pt to need any type of spinal surgery, she would be low-intermediate risk (no cardiac history or active cardiac disease by exam, normal EF) for an intermediate risk surgery. Back pain/?lumbar disc herniation with nerve impingement: by history from pt. Plan for PT prior to surgical eval HTN: better controlled -amlodipine 10mg -hydralazine 50mg BID -cozaar 50 mg QHS -pain control Problems: Consultation Date/Type/Reason Admit Date/Time Apr 22, 2017 at 17:42 Initial Consult Date 04/23/17 Type of Consultation: Cardiology Referring Provider: GEE MOORE MD 24 HR Interval Summary Free Text/Dictation Pain on and off but better with morphine. The pt tells me that she will have physical therapy tomorrow and if she fails PT then will have surgical eval. Exam/Review of Systems Vital Signs Vitals Vital Signs Date Time Temp Pulse Resp B/P Pulse Ox O2 Delivery O2 Flow Rate FiO2 04/25/17 07:52 98.0 63 18 118/60 98 04/23/17 01:00 Room Air Intake and Output 04/24/17 04/24/17 04/25/17 15:00 23:00 07:00 Intake Total 910 ml 350 ml Balance 910 ml 350 ml Exam Constitutional: alert, oriented Psych: nl mood/affect, no complaints Head: atraumatic, normocephalic Neck: No jvd Respiratory: clear to auscultation, No crackles/rales Cardiovascular: regular rate and rhythm, No edema Gastrointestinal: non-tender, soft Neurological: nl mental status, nl speech Results Result Diagram: 04/25/17 1154 04/25/17 1154 Results 24 hrs Laboratory Tests Test 04/25/17 11:54 White Blood Count 8.7 # Red Blood Count 3.87 L Hemoglobin 11.9 L Hematocrit 36.5 L Mean Corpuscular Volume 94.3 Mean Corpuscular Hemoglobin 30.7 Mean Corpuscular Hemoglobin Concent 32.6 Red Cell Distribution Width 13.2 Platelet Count 240 Mean Platelet Volume 9.6 Neutrophils % 66.0 Lymphocytes % 23.9 Monocytes % 8.5 Eosinophils % 0.7 Basophils % 0.3 Nucleated Red Blood Cells % 0.0 Neutrophils # 5.8 Lymphocytes # 2.1 Monocytes # 0.7 Eosinophils # 0.1 Basophils # 0.0 Nucleated Red Blood Cells # 0.0 Prothrombin Time 12.2 Prothrombin Time Ratio 1.0 INR International Normalized Ratio 0.91 Activated Partial Thromboplast Time 26.4 Sodium Level 140 Potassium Level 4.4 Chloride Level 98 Carbon Dioxide Level 32 H Anion Gap 14 Blood Urea Nitrogen 29 H Creatinine 0.75 Glucose Level 89 Calcium Level 9.8 Medications Medications Current Medications Atorvastatin Calcium (Lipitor) 20 mg HS PO Last administered on 04/24/17 20:33 ; Admin Dose 20 MG; Start 04/22/17 at 21:00 Miscellaneous Medication (Bystolic) 10 mg DAILY PO Last administered on 08:10; Admin Dose 10 MG; Start 04/23/17 at 09:00 Hydralazine HCl (Apresoline) 50 mg BID PO Last administered on 04/24/17 20:33 ; Admin Dose 50 MG; Start 04/22/17 at 21:00 Clonidine (Catapres) 0.2 mg BID PRN PO FOR SBP >150 Last administered on 23:52; Admin Dose 0.2 MG; Start 04/22/17 at 20:30 Pantoprazole (Protonix Tab) 40 mg DAILY@06 PO Last administered on 04/25/17 05 :28; Admin Dose 40 MG; Start 04/23/17 at 06:00 Losartan Potassium (Cozaar) 50 mg HS PO Last administered on 04/24/17 20:32; Admin Dose 50 MG; Start 04/22/17 at 21:00 Hydrochlorothiazide (Hydrochlorothiazide) 12.5 mg HS PO Last administered on 20:33; Admin Dose 12.5 MG; Start 04/22/17 at 21:00 Acetaminophen/ Hydrocodone Bitart ([place] (5/325)) 1 tab Q6H PRN PO MODERATE PAIN Last administered on 04/24/17 22:10; Admin Dose 1 TAB; Start 04/22/17 at 20:30 Bisacodyl (Dulcolax) 5 mg DAILY PRN PO CONSTIPATION Last administered on 08:10; Admin Dose 5 MG; Start 04/22/17 at 20:30 Gabapentin (Neurontin) 600 mg TID PO Last administered on 04/25/17 12:34; Admin Dose 600 MG; Start 04/22/17 at 21:00 Polyethylene Glycol (Miralax) 17 gm TID PO Last administered on 04/25/17 14:22 ; Admin Dose 17 GM; Start 04/22/17 at 21:00 Docusate Sodium (Colace) 100 mg BID PO Last administered on 04/25/17 08:10; Admin Dose 100 MG; Start 04/22/17 at 22:00 Amlodipine Besylate (Norvasc) 10 mg DAILY PO Last administered on 04/23/17 12: 57; Admin Dose 10 MG; Start 04/23/17 at 11:00 Sodium Biphosphate/ Sodium Phosphate (Fleet Enema) 133 ml DAILY PRN [place] CONSTIPATION Last administered on 04/25/17 12:34; Admin Dose 133 ML; Start at 13:30 Morphine Sulfate (morphine) 3 mg Q2H PRN IV SEVERE PAIN LEVEL 7-10 Last administered on 04/25/17 12:35; Admin Dose 3 MG; Start 04/24/17 at 12:30 GISEL RICE Apr 25, 2017 15:51
--- NOTE | 2017-04-25 19:56 | PN ---
Date/Time of Note Date/Time of Note DATE: 04/25/17 TIME: 19:51 Assessment/Plan Lines/Catheters IV Catheter Type (from Nrsg): Saline Lock Urinary Cath still in place: No Subjective 24 Hr Interval Summary Free Text/Dictation Severe back pain. Unable to get up. Unable to take care of herself. Pain is controlled only after 3 mg of morphine sulfate. Constitutional: diaphoresis, poor po, No chills, No disoriented, No febrile, No improved, No no complaints, No other, No requiring IVF, No requiring O2 ENT: dysphagia, No bleeding, No congestion, No discharge, No no complaints, No other, No pain , No sore throat Respiratory: pleuritic pain, shortness of breath, No cough, No no complaints, No other, No pain, No sputum, No wheezing Cardiovascular: chest pain, lightheadedness, orthopenea, palpitations, No edema, No no complaints, No other, No paroxysmal nocturnal dyspnea Gastrointestinal: constipation, decreased appetite, nausea, passing stool, No blood, No diarrhea, No flatus, No no complaints, No other, No pain, No vomiting Musculoskeletal: back pain, bone/joint pain Neurologic: dizziness, focal-weakness (bilateral leg weakness.) Lymphatic: tender nodes Psychological: anxiety, depression Exam/Review of Systems Vital Signs Vitals Vital Signs Date Time Temp Pulse Resp B/P Pulse Ox O2 Delivery O2 Flow Rate FiO2 04/25/17 07:52 98.0 63 18 118/60 98 04/23/17 01:00 Room Air Intake and Output 04/24/17 04/24/17 04/25/17 15:00 23:00 07:00 Intake Total 910 ml 350 ml Balance 910 ml 350 ml Exam Constitutional: alert, frail, obese, oriented, No distress, No non-verbal, No other, No well developed Psych: anxiety, depression, No confusion, No nl mood/affect, No no complaints, No other, No suicidal Eyes: EOMI, PERRL, fundi, disc, nl lids ENMT: No intubated, No mucosa pink and moist, No nl external ears & nose, No nl lips & teeth, No nl nasal mucosa & septum, No other, No tympanic membranes Neck: bruits, jvd, No masses, No non-tender, No nuchal rigidity, No other, No supple, No thyromegaly Respiratory: diminished breath sounds, respirations, No clear to auscultation, No congested cough, No crackles/rales, No intercostal retraction, No labored breathing, No normal air movement, No other, No tactile fremitus, No wheezing Cardiovascular: bruits, irregular rhythm, systolic murmur, No S3, No S4, No diastolic murmur, No edema, No gallop, No jugular venous distention (JVD), No murmurs/extra sounds, No nl pulses, No other, No regular rate and rhythm, No rub Gastrointestinal: nl liver, spleen, soft Genitourinary - Female: CVA tenderness, No CMT, No nl adnexae, No nl external genitalia, No other, No uterus Musculoskeletal: joint tenderness, muscle weakness Extremities: tenderness Neurological: RESIDENTIAL ASSISTANT II-XII intact (decreased hearing.), nl mental status, nl speech, nl strength (decreased straight.), numbness (both legs.), No DTR's symmetric, No confused, No focal weakness, No lethargic, No other, No reflexes, No unresponsive Skin: diaphoresis, No ecchymosis, No laceration, No nl turgor, No other, No puncture, No rash or lesions Results Result Diagram: 04/25/17 1154 04/25/17 1154 Results 24 hrs Laboratory Tests Test 04/25/17 11:54 White Blood Count 8.7 # Red Blood Count 3.87 L Hemoglobin 11.9 L Hematocrit 36.5 L Mean Corpuscular Volume 94.3 Mean Corpuscular Hemoglobin 30.7 Mean Corpuscular Hemoglobin Concent 32.6 Red Cell Distribution Width 13.2 Platelet Count 240 Mean Platelet Volume 9.6 Neutrophils % 66.0 Lymphocytes % 23.9 Monocytes % 8.5 Eosinophils % 0.7 Basophils % 0.3 Nucleated Red Blood Cells % 0.0 Neutrophils # 5.8 Lymphocytes # 2.1 Monocytes # 0.7 Eosinophils # 0.1 Basophils # 0.0 Nucleated Red Blood Cells # 0.0 Prothrombin Time 12.2 Prothrombin Time Ratio 1.0 INR International Normalized Ratio 0.91 Activated Partial Thromboplast Time 26.4 Sodium Level 140 Potassium Level 4.4 Chloride Level 98 Carbon Dioxide Level 32 H Anion Gap 14 Blood Urea Nitrogen 29 H Creatinine 0.75 Glucose Level 89 Calcium Level 9.8 Medications Medications Current Medications Atorvastatin Calcium (Lipitor) 20 mg HS PO Last administered on 04/24/17 20:33 ; Admin Dose 20 MG; Start 04/22/17 at 21:00 Miscellaneous Medication (Bystolic) 10 mg DAILY PO Last administered on 08:10; Admin Dose 10 MG; Start 04/23/17 at 09:00 Hydralazine HCl (Apresoline) 50 mg BID PO Last administered on 04/24/17 20:33 ; Admin Dose 50 MG; Start 04/22/17 at 21:00 Clonidine (Catapres) 0.2 mg BID PRN PO FOR SBP >150 Last administered on 23:52; Admin Dose 0.2 MG; Start 04/22/17 at 20:30 Pantoprazole (Protonix Tab) 40 mg DAILY@06 PO Last administered on 04/25/17 05 :28; Admin Dose 40 MG; Start 04/23/17 at 06:00 Losartan Potassium (Cozaar) 50 mg HS PO Last administered on 04/24/17 20:32; Admin Dose 50 MG; Start 04/22/17 at 21:00 Hydrochlorothiazide (Hydrochlorothiazide) 12.5 mg HS PO Last administered on 20:33; Admin Dose 12.5 MG; Start 04/22/17 at 21:00 Acetaminophen/ Hydrocodone Bitart ([place] (5/325)) 1 tab Q6H PRN PO MODERATE PAIN Last administered on 04/24/17 22:10; Admin Dose 1 TAB; Start 04/22/17 at 20:30 Bisacodyl (Dulcolax) 5 mg DAILY PRN PO CONSTIPATION Last administered on 08:10; Admin Dose 5 MG; Start 04/22/17 at 20:30 Gabapentin (Neurontin) 600 mg TID PO Last administered on 04/25/17 12:34; Admin Dose 600 MG; Start 04/22/17 at 21:00 Polyethylene Glycol (Miralax) 17 gm TID PO Last administered on 04/25/17 14:22 ; Admin Dose 17 GM; Start 04/22/17 at 21:00 Docusate Sodium (Colace) 100 mg BID PO Last administered on 04/25/17 08:10; Admin Dose 100 MG; Start 04/22/17 at 22:00 Amlodipine Besylate (Norvasc) 10 mg DAILY PO Last administered on 04/23/17 12: 57; Admin Dose 10 MG; Start 04/23/17 at 11:00 Sodium Biphosphate/ Sodium Phosphate (Fleet Enema) 133 ml DAILY PRN [place] CONSTIPATION Last administered on 04/25/17 12:34; Admin Dose 133 ML; Start at 13:30 Morphine Sulfate (morphine) 3 mg Q2H PRN IV SEVERE PAIN LEVEL 7-10 Last administered on 04/25/17 18:28; Admin Dose 3 MG; Start 04/24/17 at 12:30 GEE MOORE MD Apr 25, 2017 19:56
[2017-04-25] MEDS: ATORVASTATIN 20 MG TAB PO SCH (20:45)
[2017-04-25 20:59] VITALS: BP 156/69; RESP 22
[2017-04-25] MEDS: HYDROCHLOROTHIAZIDE 12.5 MG CAP PO SCH (21:00)
[2017-04-25] MEDS: LOSARTAN 50 MG TAB PO SCH (21:22)
[2017-04-25 22:22] VITALS: BP 111/54; PULSE 68
[2017-04-26] MEDS: morphine 4 MG/ML VIAL IV PRN ×4 (00:58→17:37)
[2017-04-26] MEDS: PANTOPRAZOLE (EC) 40 MG TAB PO SCH (05:53)
[2017-04-26 08:18] VITALS: BP 113/58; RESP 18
[2017-04-26] MEDS: AMLODIPINE 10 MG TAB PO SCH (09:00)
[2017-04-26] MEDS: DOCUSATE SODIUM 100 MG CAP PO SCH (10:19)
[2017-04-26] MEDS: GABAPENTIN 300 MG CAP PO SCH ×2 (10:19→14:03)
[2017-04-26] MEDS ORDERED: METHYLPREDNISOLONE 125 MG INJ IV ONE (11:00)
[2017-04-26] MEDS: NEBIVOLOL 5 MG TAB PO SCH (11:23)
[2017-04-26] MEDS: POLYETHYLENE GLYCOL 17 GM PACKET PO SCH ×2 (11:26→13:00)
--- NOTE | 2017-04-26 11:41 | CONS ---
Date/Time of Note Date/Time of Note DATE: 04/26/17 TIME: 11:39 Assessment/Plan Assessment/Plan Chief Complaint/Hosp Course Pre-operative evaluation: Were the pt to need any type of spinal surgery, she would be low-intermediate risk (no cardiac history or active cardiac disease by exam, normal EF) for an intermediate risk surgery. 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 Working with PT and started on steroids HTN: better controlled -amlodipine 10mg -hydralazine 50mg BID -cozaar 50 mg QHS -pain control Problems: Consultation Date/Type/Reason Admit Date/Time Apr 22, 2017 at 17:42 Initial Consult Date 04/23/17 Type of Consultation: Cardiology Referring Provider: GEE MOORE MD 24 HR Interval Summary Free Text/Dictation No o/n events. Had solumedrol this am. Worked with PT and was able to walk somewhat but only after morphine. Exam/Review of Systems Vital Signs Vitals Vital Signs Date Time Temp Pulse Resp B/P Pulse Ox O2 Delivery O2 Flow Rate FiO2 04/26/17 08:18 98.2 62 18 113/58 94 04/23/17 01:00 Room Air Intake and Output 04/25/17 04/25/17 04/26/17 15:00 23:00 07:00 Intake Total 960 ml 300 ml Balance 960 ml 300 ml Exam Constitutional: alert, oriented Psych: nl mood/affect, no complaints Head: atraumatic, normocephalic Neck: No jvd Respiratory: clear to auscultation, No crackles/rales Cardiovascular: regular rate and rhythm, No edema Gastrointestinal: non-tender, soft Neurological: nl mental status, nl speech Results Result Diagram: 04/25/17 1154 04/25/17 1154 Results 24 hrs Laboratory Tests Test 04/25/17 11:54 White Blood Count 8.7 # Red Blood Count 3.87 L Hemoglobin 11.9 L Hematocrit 36.5 L Mean Corpuscular Volume 94.3 Mean Corpuscular Hemoglobin 30.7 Mean Corpuscular Hemoglobin Concent 32.6 Red Cell Distribution Width 13.2 Platelet Count 240 Mean Platelet Volume 9.6 Neutrophils % 66.0 Lymphocytes % 23.9 Monocytes % 8.5 Eosinophils % 0.7 Basophils % 0.3 Nucleated Red Blood Cells % 0.0 Neutrophils # 5.8 Lymphocytes # 2.1 Monocytes # 0.7 Eosinophils # 0.1 Basophils # 0.0 Nucleated Red Blood Cells # 0.0 Prothrombin Time 12.2 Prothrombin Time Ratio 1.0 INR International Normalized Ratio 0.91 Activated Partial Thromboplast Time 26.4 Sodium Level 140 Potassium Level 4.4 Chloride Level 98 Carbon Dioxide Level 32 H Anion Gap 14 Blood Urea Nitrogen 29 H Creatinine 0.75 Glucose Level 89 Calcium Level 9.8 Medications Medications Current Medications Atorvastatin Calcium (Lipitor) 20 mg HS PO Last administered on 04/25/17 20:45 ; Admin Dose 20 MG; Start 04/22/17 at 21:00 Miscellaneous Medication (Bystolic) 10 mg DAILY PO Last administered on 11:23; Admin Dose 10 MG; Start 04/23/17 at 09:00 Hydralazine HCl (Apresoline) 50 mg BID PO Last administered on 04/24/17 20:33 ; Admin Dose 50 MG; Start 04/22/17 at 21:00 Clonidine (Catapres) 0.2 mg BID PRN PO FOR SBP >150 Last administered on 23:52; Admin Dose 0.2 MG; Start 04/22/17 at 20:30 Pantoprazole (Protonix Tab) 40 mg DAILY@06 PO Last administered on 04/26/17 05 :53; Admin Dose 40 MG; Start 04/23/17 at 06:00 Losartan Potassium (Cozaar) 50 mg HS PO Last administered on 04/25/17 21:22; Admin Dose 50 MG; Start 04/22/17 at 21:00 Hydrochlorothiazide (Hydrochlorothiazide) 12.5 mg HS PO Last administered on 20:33; Admin Dose 12.5 MG; Start 04/22/17 at 21:00 Acetaminophen/ Hydrocodone Bitart ([place] (5/325)) 1 tab Q6H PRN PO MODERATE PAIN Last administered on 04/24/17 22:10; Admin Dose 1 TAB; Start 04/22/17 at 20:30 Bisacodyl (Dulcolax) 5 mg DAILY PRN PO CONSTIPATION Last administered on 08:10; Admin Dose 5 MG; Start 04/22/17 at 20:30 Gabapentin (Neurontin) 600 mg TID PO Last administered on 04/26/17 10:19; Admin Dose 600 MG; Start 04/22/17 at 21:00 Polyethylene Glycol (Miralax) 17 gm TID PO Last administered on 04/26/17 11:26 ; Admin Dose 17 GM; Start 04/22/17 at 21:00 Docusate Sodium (Colace) 100 mg BID PO Last administered on 04/26/17 10:19; Admin Dose 100 MG; Start 04/22/17 at 22:00 Amlodipine Besylate (Norvasc) 10 mg DAILY PO Last administered on 04/23/17 12: 57; Admin Dose 10 MG; Start 04/23/17 at 11:00 Sodium Biphosphate/ Sodium Phosphate (Fleet Enema) 133 ml DAILY PRN MA CONSTIPATION Last administered on 04/25/17 12:34; Admin Dose 133 ML; Start at 13:30 Morphine Sulfate (morphine) 3 mg Q2H PRN IV SEVERE PAIN LEVEL 7-10 Last administered on 04/26/17 10:19; Admin Dose 3 MG; Start 04/24/17 at 12:30 GISEL RICE Apr 26, 2017 11:41
--- NOTE | 2017-04-26 16:26 | PDOCDIS ---
Discharge Instructions DIAGNOSIS Discharge Diagnosis 1.Severwe lbp 2.Spinal stenosis CONDITION Patient Condition: Serious HOME CARE INSTRUCTIONS: Diet Instructions: Reduced CalorieSpecial Diet: 2GM NA ACTIVITY: Activity Restrictions: Slowly Increase Activity Do not Drive Do not operate Machinery Do not operate Power Tool Avoid Heavy Housework No Weight Bearing Special Exercises Bathing Restrictions: Shower FOLLOW UP/APPOINTMENTS Follow-up Plan [address] Casey. REFERRALS Other Referrals for pain management. OTHER ORDERS: Other Orders: Meds; PT/OT. SCHOOL/WORK RELEASE May return to School/Work on: Apr 26, 2017 May return to School/Work with: GEE Quiñones MD Apr 26, 2017 16:26
[2017-04-26] MEDS: HYDROCODONE/APAP (5/325) TAB PO PRN (19:30)
== END 2017-04-26 20:16 | disposition home health service (06) | DRG 93 ==
LOC: E/R 12:18 → PP2 17:42
PROVIDERS: ADMIT Family Medicine; ATTEND Family Medicine
DX: G89.29 Other chronic pain (principal); I10 Essential (primary) hypertension; M54.5 Low back pain; E78.5 Hyperlipidemia, unspecified; M51.16 Intervertebral disc disorders with radiculopathy, lumbar region; Z91.81 History of falling
CPT/HCPCS: 36415; 80048; 80053; 81001; 85025; 85610; 85730; 93005; 93306; 96374; 96375; 97162; 97166; J1885; J2270; J2405; J2930